=== PATIENT | male | born 1960 | race Caucasian/White ===

== ENCOUNTER → 2018-01-16 | Outpatient (CLI) | payer OTHER ==
[~2018-01-16] MED LIST: ATROPINE SULFATE 0.1 MG/ML 5ML SYR ONE; DOBUTamine HCL 12.5 MG/ML 20 ML VIAL ONE; METOPROLOL TARTRATE 1 MG/ML VIAL ONE
--- NOTE | 2018-01-16 16:05 | DOBUTAMINE ECHO ---
*NOTICE TO RECEIVING CONSTITUTION PARTY AGENCY This information is strictly Confidential and protected under [place] law. [place] law prohibits you from making any further disclosure of this information unless further disclosure is expressly permitted by the written consent of the person to whom it pertains or is authorized by law. A general authorization for the release of medical or other information is not sufficient for this purpose. Hospital accepts no responsibility if the information is made available to any other person, INCLUDING THE PATIENT. Interpretation Summary * Name: PRIMO [facility]SU Study Date: 01/16/2018 09:45 AM BP: 141/86 mmHg * Patient Location: [facility] HR: 78 * : 1960 (M/d/yyyy) Gender: Male Height: 74 in * Age: 57 yrs Ethnicity: [place] Weight: 190 lb * Ordering Physician: Anthony Ernst * Referring Physician: Anthony Ernst * Performed By: Cindy Banegas RDCS * * Reason For Study: Preoperative Cardiovascular Examination (Z01.810); Nonspeciafic Abnormal Electrocardiogram (R94.31); Abnormal Echocardiogram (R93.1). * BSA: 2.1 m2 * -- Conclusions -- * Full resting study completed 12/23/17. * Nonischemic dobutamine stress echocardiogram. * No arrhythmias. * Normal HR and BP response to dobutamine infusion. Procedure Details * DOBUTAMINE ECHO, CPT#36767 Left Ventricle * Ejection Fraction = 55-60%. Stress Parameters * The stress portion of this study was personally supervised by the undersigned interpreting physician. * Rest heart rate was '78' BPM. * Rest blood pressure was '141/86' * Maximum heart rate achieved was 155 bpm. * Maximum heart rate was 94 % of maximum age-predicted heart rate. * Maximum blood pressure was '155/78' * Maximum Dobutamine infusion rate was '40' mcg/kg/min. * Dobutamine infusion was terminated due to achieving target heart rate * A total of 5 mg of IV Metoprolol was administered to reverse Dobutamine-induced tachycardia.
== END | disposition home or self-care (01) ==
LOC: C.CPL 09:36
PROVIDERS: ATTEND Internal Medicine Interventional Cardiology
DX: Z01.810 Encounter for preprocedural cardiovascular examination (principal); R94.31 Abnormal electrocardiogram [ECG] [EKG]; R93.1 Abnormal findings on diagnostic imaging of heart and coronary circulation